=== PATIENT | female | born 1970 ===

== ENCOUNTER 2023-02-14 07:28 | Inpatient (IN) | payer OTHER ==
[~2023-02-14] VITALS: Ht 162.6 cm; Wt 72.6 kg
[2023-02-14] MEDS ORDERED: TOPROL XL50 M1 PO (07:48)
[2023-02-14] MEDS ORDERED: SYNTHROID50 MCG PO (07:49)
[2023-02-20] MEDS ORDERED: [UNRECOGNIZED DRUG - CODE] (14:54)
[2023-02-20] MEDS ORDERED: XULANE PATCH1 EACH (14:54)
[2023-02-20] MEDS ORDERED: DULOXETINE HCL60 MG (14:54)
[2023-02-20] MEDS ORDERED: CLONAZEPAM1 MG (14:54)
[2023-02-20] MEDS ORDERED: TRAZODONE HCL50 MG (14:54)
[2023-02-20] MEDS ORDERED: LEVO-T25 MCG (14:54)
[2023-02-20] MEDS ORDERED: MEGESTROL ACETA40 MG (14:54)
[2023-02-20] MEDS ORDERED: GABAPENTIN100 M2 (14:55)
[2023-02-20] MEDS ORDERED: MAXIMUM D3325 MCG (14:55)
== END 2023-02-22 15:02 | disposition home or self-care (01) | DRG 743 ==
LOC: SURG 02-20 07:00 → O/R 02-20 10:13 → OB/GYN 02-20 16:33
PROVIDERS: Obstetrics & Gynecology; ADMIT Obstetrics & Gynecology; ATTEND Obstetrics & Gynecology
PROC: 0UT90ZZ Resection of Uterus, Open Approach (ICD-10-PCS; principal; 2023-02-20 07:00)
DX: N80.03 Adenomyosis of the uterus (principal); N84.1 Polyp of cervix uteri; Z20.822 Contact with and (suspected) exposure to COVID-19